=== PATIENT | male | born 1985 | race Caucasian/White ===

== ENCOUNTER 2020-04-12 05:09 | Emergency (ER) | payer MEDICAID ==
[~2020-04-12] VITALS: Ht 175.3 cm; Wt 81.8 kg
[~2020-04-12 05:09] MED LIST: IBUP-1984 PO; IBUP-1986 PO
[2020-04-12] MEDS ORDERED: LORazepam 2 mg/ml vial IM ONE (05:25)
[2020-04-12 05:56] VITALS: BP 129/86
== END 2020-04-12 06:39 | disposition home or self-care (01) ==
LOC: ER 05:10
DX: F41.0 Panic disorder [episodic paroxysmal anxiety] (principal); F10.920 Alcohol use, unspecified with intoxication, uncomplicated; F12.90 Cannabis use, unspecified, uncomplicated; Z98.890 Other specified postprocedural states; Y90.9 Presence of alcohol in blood, level not specified
CPT/HCPCS: 96372; 99283; J2060

== ENCOUNTER 2020-05-09 00:28 | Emergency (ER) | payer MEDICAID ==
[~2020-05-09] VITALS: Ht 175.3 cm; Wt 81.8 kg
[2020-05-09 00:33] VITALS: BP 164/84
[2020-05-09] MEDS ORDERED: hydrOXYzine 25 MG tablet PO ONE (02:00)
== END 2020-05-09 03:12 | disposition home or self-care (01) ==
LOC: ER 00:29
DX: F41.9 Anxiety disorder, unspecified (principal); F12.10 Cannabis abuse, uncomplicated; Z72.89 Other problems related to lifestyle; Z79.899 Other long term (current) drug therapy
CPT/HCPCS: 99283; Q0177

== ENCOUNTER 2021-05-14 16:35 | Emergency (ER) | payer MEDICAID ==
[~2021-05-14] VITALS: Ht 175.3 cm; Wt 84.6 kg
[2021-05-14 16:59] VITALS: BP 143/91
== END 2021-05-14 18:47 | disposition home or self-care (01) ==
LOC: ER 16:36
DX: S60.051A Contusion of right little finger without damage to nail, initial encounter (principal); M79.652 Pain in left thigh; F12.90 Cannabis use, unspecified, uncomplicated; Z98.890 Other specified postprocedural states; Z72.89 Other problems related to lifestyle; Z79.899 Other long term (current) drug therapy; X58.XXXA Exposure to other specified factors, initial encounter; Y93.89 Activity, other specified; Y92.89 Other specified places as the place of occurrence of the external cause; Y99.8 Other external cause status
CPT/HCPCS: 73502; 73630; 99284

== ENCOUNTER 2022-12-03 19:38 | Emergency (ER) | payer MEDICAID ==
[~2022-12-03] VITALS: Ht 175.3 cm; Wt 82.0 kg
[2022-12-03 19:48] VITALS: BP 146/87
== END 2022-12-03 22:13 | disposition left against medical advice (07) ==
LOC: ER 19:38
DX: H10.021 Other mucopurulent conjunctivitis, right eye (principal); Z53.21 Procedure and treatment not carried out due to patient leaving prior to being seen by health care provider
CPT/HCPCS: 99281